=== PATIENT | male | born 2000 | race Hispanic/Latino ===

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

== ENCOUNTER 2022-05-22 23:04 | Emergency (ER) | payer OTHER ==
--- OUTSIDE RECORDS SUMMARY | 2022-05-22 23:07 | XMS REPORT | Continuity of Care Document ---
:2000 Author Organization [facility] t Address [address] [place] [address] Care Team Providers Name Role Phone HORACIO MERIDA Primary Care Physician Unavailable MEHRAN CORONA Attending Clinician Unavailable Mehran Corona DO Attending Clinician MEHRAN CORONA Admitting Clinician Unavailable Payers Payer Name Policy Type Policy Number Effective Date Expiration Date S emma CIGNA II [id number] 2015 00:00:00 Problems This patient has no known problems. Allergies, Adverse Reactions, Alerts Allergy Allergy Status Severity Reaction(s) Onset Inactive Treating Comm ents Source Name Type Date Date Clinician NO KNOWN Drug Active Univers ALLERGIE Class ity of S [facility] Social History Social Habit Start Date Stop Date Quantity Comments Source Exposure to 2022-04-18 2022-04-28 Unable to assess Univers ity of SARS-CoV-2 00:00:00 16:25:00 [facility] (event) Branch Alcohol intake 2022-03-30 2022-03-30 0 /d [facility] 00:00:00 00:00:00 [facility] Sex Assigned At [birth year] Universit y of 00:00:00 00:00:00 [facility] Smoking Status Start Date Stop Date Source Never smoked tobacco [facility] Medications Ordered Filled Start Stop Current Ordering Indication Dosage Frequency Signature Comments Components Source Medication Medication Date Date Medication? Clinician (SIG) Name Name iopamidol 2021- No [id number] 55mL 55 mL, U nivers (ISOVUE 8-10 08-10 Intravenou ity o f 370-500 mL) 23:30: 23:30 s, ONCE, 1 [place] injection 00 :00 dose, On Medica l 55 mL Wed Branch 04/28/22 at 1830, Routine HYDROcodone 2021- No 1{tbl} 1 tablet, Univers -acetaminop 04-28 Oral, ity of hen (NORCO) 23:09: 23:13 [place] 10-325 mg 00 :00 dose, On Medica l tablet 1 Wed Branch tablet 04/28/22 at 1815, Routine NaCl 0.9% 2021- No 1000mL at 999 Uni vers (NS) bolus 04-28 mL/hr, ity of infusion 21:45: 23:51 1,000 mL, [place] 1,000 mL 00 :00 IV Medical Infusion, Branch ONCE, 1 dose, On Tue04/28/22 at 1645, STAT ondansetron 2021- No 4mg 4 mg, Slow Univers (ZOFRAN 04-28 IV Push, ity of (PF)) 21:45: 22:23 ONCE, 1 [place] injection 4 00 :00 dose, On Medi conner mg Tue Branch 04/28/22 at 1645, Routine naproxen Yes [id number] 550mg Take 1 U nivers sodium 550 8-10 tablet by ity of mg tablet 00:00: [facility] morning Branch and 1 tablet in the evening. Take with meals. methylPREDN Yes [id number] Take by Univers ISolone 4 8-10 mouth ity of mg tablets 00:00: SEE-INSTRU [place] 00 CTIONS. Medical follow Branch package directions methocarbam 2021- Yes [id number] 500mg Take 1 Univers oL 500 mg 04-28 tablet by ity of tablet 00:00: 04:59 mouth in [place] 00 :00 the Medical morning Branch and 1 tablet at noon and 1 tablet in the evening. Do all this for 5 days. DICLOFENAC Yes TAKE 1 Unive rs 75 mg EC 5-22 TABLET BY ity of tablet 00:00: MOUTH [place] 00 TWICE Medical DAILY WITH Branch MEALS dextroamphe 2015-09 Yes Hans s tamine-amph 0-22 ity of etamine 00:00: [place] (ADDERALL) 00 Medical 20 mg Branch tablet Vital Signs Vital Name Observation Time Observation Value Comments Source Systolic blood 2022-04-28 23:30:00 121 mm[Hg] Hans sity of pressure [facility] Diastolic blood 2022-04-28 23:30:00 78 mm[Hg] Univadrian rsity of pressure [facility] Heart rate 2022-04-28 23:30:00 70 /min [facility] Respiratory rate 2022-04-28 23:30:00 11 /min [facility] Oxygen saturation in 2022-04-28 23:30:00 99 /min [facility] Arterial blood by [facility] Pulse oximetry [place] Body temperature 2022-04-28 21:45:00 36.67 [facility] height 2022-04-28 21:33:29 182.9 cm [facility] Body weight 2022-04-28 21:33:29 81.647 kg [facility] BMI 2022-04-28 21:33:29 24.41 kg/m2 [facility] Procedures Procedure Date / Time Performed Performing Clinician Sourc e [place] RESUP NPTERF WND 2022-04-28 23:21:[address] [facility] BODY 2.6-7.5 [address] Medical [place] [address] TRAUMA THORAX W 2022-04-28 22:22:54 Mehran Corona [facility] CONTRAST [facility] Branch CT TRAUMA ABDOMEN 2022-04-28 22:22:54 [facility] PELVIS W [facility] CT TRAUMA HEAD WO 2022-04-28 22:08:00 [facility] CONTRAST [facility] CT TRAUMA CERVICAL 2022-04-28 22:08:00 Singer [facility] SPINE WO CONTRAST [facility] COMP. METABOLIC PANEL 2022-04-28 21:52:00 Mehran Corona [facility] [place] ([id number]) Medical Branch ETHANOL 2022-04-28 21:52:00 Mehran Corona [place] [facility] CBC WITH DIFF 2022-04-28 21:52:00 Mehran Corona [place] [facility] LACTIC ACID WHOLE 2022-04-28 21:52:00 Mehran Corona [facility] Encounters Start End Encounter Admission Attending Care Care Encounter Source Date/Time Date/Time Type Type Clinicians Facility Department ID 2022-04-28 2022-04-28 Emergency X SINGER [facility] ERT [id number] Univers 16:28:00 18:54:00 MEHRAN goldsmith [facility] [place] 2022-04-28 2022-04-28 Emergency Singer [facility] [id number] Univers 16:28:00 18:54:00 Mehran STINSON [id number] i ty [facility] [id number] [facility] [id number] [address] Results Test Description Test Time Test Comments Results Result Comments Source Lactic Acid Whole Blood 2022-04-28 21:56:49 Test Item Value Reference Range Interpretation Comme nts LACTIC ACID (test code = 8161923637) 1.62 mmol/L 0.5-2.2 Lab Interpretation (test code = 27216-5) Normal [facility]
[2022-05-22 23:41] LABS: Urine Blood 1+ (Negative); Urine Glucose Negative (Negative); Urine Protein 2+ (Negative); Urine Specific Gravity >=1.030 (1.005-1.030); Urine pH 5.5 (5.0-7.0)
[2022-05-22 23:42] LABS: Hematocrit 43.2 % (39.6-49.0); Lymphocytes % 32.1 % (15.3-44.8); MCV 83.8 fL (80-100); MPV 8.2 fL (7.6-11.3); RBC Red Blood Cell Count 5.15 M/uL (4.33-5.43)
[2022-05-22] MEDS ORDERED: LORazepam 2 MG/ML VIAL ONE (23:45)
[2022-05-22] MEDS ORDERED: LEVETIRACETAM 500 MG/5 ML VIAL IV ONE (23:46)
[2022-05-22] MEDS ORDERED: NA CHLORIDE 0.9% 1,000 ML ONE (23:47)
[2022-05-22] MEDS ORDERED: NA CHLORIDE 0.9% 100 ML ONE (23:47)
[2022-05-22 23:48] LABS: Protime INR 1.16
[2022-05-23 00:03] LABS: Barbiturates NEGATIVE (NEGATIVE); Benzodiazepines NEGATIVE (NEGATIVE); Cocaine NEGATIVE (NEGATIVE); METHAMPHETAM NEGATIVE (NEGATIVE); Methadone NEGATIVE (NEGATIVE); Opiates NEGATIVE (NEGATIVE); Phencyclidine NEGATIVE (NEGATIVE); THC Cannibis NEGATIVE (NEGATIVE)
[2022-05-23 00:10] LABS: ALT/SGPT 42 U/L (12-78); AST/SGOT 14 U/L (15-37); Albumin 4.1 g/dL (3.4-5.0); Alkaline Phosphatase 69 U/L (45-117); BUN Blood Urea Nitrogen 10 mg/dL (7-18); Bicarbonate 25 mmol/L (21-32); Bilirubin Direct < 0.1 mg/dL (0-0.2); Bilirubin Total 0.3 mg/dL (0.2-1.0); Glomerular Filtration Rate 99 ml/min (=/>90); Glucose Level 111 mg/dL (74-106); Potassium 3.8 mmol/L (3.5-5.1); Protein, Total 7.9 g/dL (6.4-8.2); Sodium Level 140 mmol/L (136-145)
--- NOTE | 2022-05-23 00:38 | ER ---
Nurse's Notes [facility] Name: Devin Kathleen Age: 21 yrs Sex: Male : 2000 Arrival Date: 05/22/2022 Time: 23:05 Bed 3 Private MD: Diagnosis: Epileptic seizures related to external causes, not intractable Presentation: 05/22 23:11 Chief complaint: EMS states: Seizure while eating in the restaurant, fell from chair to ke1 ground with tongue protruded out. Coronavirus screen:. Ebola Screen: No symptoms or risks identified at this time. Initial Sepsis Screen: Does the patient meet any 2 criteria? No. Patient's initial sepsis screen is negative. Does the patient have a suspected source of infection? No. Patient's initial sepsis screen is negative. Risk Assessment: Do you want to hurt yourself or someone else? Patient reports no desire to harm self or others. Onset of symptoms was May 22, 2022 at 22:30. 23:11 Method Of Arrival: EMS ke 23:11 Acuity: MEREDITH 3 ke1 Triage Assessment: 23:18 General: Appears in no apparent distress. Behavior is appropriate for age. Pain: Denies ke1 pain. Historical: - Allergies: 23:17 No Known Allergies; ke1 - PMHx: 23:17 Seizure; ke1 - Immunization history:: Client reports having NOT received the Covid vaccine. - Social history:: Smoking status: Patient denies any tobacco usage or history of. - Family history:: not pertinent. Screenin:17 Abuse screen: Denies threats or abuse. Nutritional screening: No deficits noted. ke1 Tuberculosis screening: No symptoms or risk factors identified. Fall Risk Fall in past 12 months (25 points). Secondary diagnosis (15 points) seizures, IV access (20 points). Ambulatory Aid- None/Bed Rest/Nurse Assist (0 pts). Gait- Normal/Bed Rest/Wheelchair (0 pts) Mental Status- Oriented to own ability (0 pts). Total Dhaliwal Fall Scale indicates High Risk Score (45 or more points). Fall prevention measures have been instituted. Side Rails Up X 2 Placed Close to Nursing Station Frequent Obs/Assessments Occuring As available patient and family educated on Fall Prevention Program and Strategies. Vital Signs: 23:11 BP 127 / 62; Pulse 93; Resp 17; Temp 99.2; Pulse Ox 97% ; Weight 90.72 kg; Height 6 ft. ke1 (182.88 cm); Pain 0/10; 23:42 BP 109 / 59; Pulse 77; Resp 16; Temp 98.5(O); Pulse Ox 98% on R/A; mh5 23:11 Body Mass Index 27.12 (90.72 kg, 182.88 cm) ke1 ED Course: 23:05 Patient arrived in ED. ds4 23:11 Trae Ernandez, MANDO is Primary Nurse. ke1 23:17 Triage completed. ke1 23:18 Arm band placed on right wrist. ke1 23:18 Placed in gown. Bed in low position. Call light in reach. Side rails up X 1. Side rails ke1 up X2. Seizure precautions initiated. 23:19 Trenton Keita MD is Attending Physician. jhonny 23:31 Acetaminophen Sent. mh5 23:31 Basic Metabolic Panel Sent. 5 23:31 CBC with Diff Sent. 5 23:31 ETOH Level Sent. 5 23:31 Maintain EMS IV. Site clean \T\ dry. Gauge \T\ site: 18G LAC. ke 1 23:31 Hepatic Function Sent. 5 23:31 PT-INR Sent. 5 23:31 Ptt, Activated Sent. 5 23:31 Salicylate Sent. 5 23:31 Urine Drug Screen Sent. 5 23:31 Initial lab(s) drawn, by tn, sent to lab. Urine collected: clean catch specimen, clear, 5 EKG done, by ED staff, reviewed by Trenton Keita MD. 23:32 Warm blanket given. Pillow given. solution professional on. Pulse ox on. NIBP on. 5 05/23 00:36 CT Head Brain wo Cont In Process Unspecified. EDMS 00:37 Igor Sprague MD is Referral Physician. jhonny 01:37 No provider procedures requiring assistance completed. ke1 01:45 IV discontinued. ke1 Administered Medications: 05/22 23:46 Drug: NS 0.9% 1000 ml Route: IV; Rate: 1 bolus; Site: left antecubital; ke1 05/23 00:30 Follow up: IV Status: Completed infusion ke1 05/22 23:46 Drug: Keppra (levETIRAcetam) 1000 mg Route: IV; Rate: per protocol; Site: left ke antecubital; 05/23 00:01 Follow up: IV Status: Completed infusion ke1 05/22 23:46 Drug: Ativan (LORazepam) 1 mg Route: IVP; Site: left antecubital; ke1 05/23 00:00 Follow up: Response: No adverse reaction ke1 Medication: 01:45 VIS not applicable for this client. ke1 Outcome: 00:38 Discharge ordered by MD. barry 01:45 Discharged to home ambulatory. ke1 01:45 Condition: good 01:45 Discharge instructions given to patient. 01:47 Patient left the ED. ke1 Signatures: Dispatcher [employer] EDMS Trenton Keita MD MD cha Swanson, Donovan 4 Kaela Collier 5 Trae Ernandez, RN RN ke1
--- NOTE | 2022-05-23 00:39 | EDPHYS ---
Physician Documentation [facility] Name: Devin Kathleen Age: 21 yrs Sex: Male : 2000 Arrival Date: 05/22/2022 Time: 23:05 Bed 3 Private MD: ED Physician Trenton Keita HPI: 05/23 00:31 This 21 yrs old Male presents to ER via EMS with complaints of seizure at a [facility] restaurant. 00:31 The patient presents after having a single isolated seizure, that lasted 2 minute(s). [facility] Character of seizure(s): Loss of consciousness: the patient experienced loss of consciousness, Motor activity: generalized, Incontinence: none, Apnea: the patient did not experience apnea, Circulation: the patient did not experience evidence of pulse disturbance. Seizure onset: just prior to arrival. Context: the seizure(s) was witnessed, by a bystander, by family, occurred at a restaurant, occurred while the patient was eating, Contributing factors: unknown. Seizure Hx: Usual frequency: irregular frequency. Associated injury: The patient did not suffer any apparent associated injury. EMS care: none. Current symptoms: Currently, the patient is not experiencing any symptoms. The patient has experienced similar episodes in the past, several times. Historical: - Allergies: 05/22 23:17 No Known Allergies; ke1 - PMHx: 23:17 Seizure; ke1 - Immunization history:: Client reports having NOT received the Covid vaccine. - Social history:: Smoking status: Patient denies any tobacco usage or history of. - Family history:: not pertinent. ROS: 05/23 00:31 Constitutional: Negative for fever, chills, and weight loss, Eyes: Negative for injury, jhonny pain, redness, and discharge, ENT: Negative for injury, pain, and discharge, Neck: Negative for injury, pain, and swelling, Cardiovascular: Negative for chest pain, palpitations, and edema, Respiratory: Negative for shortness of breath, cough, wheezing, and pleuritic chest pain, Abdomen/GI: Negative for abdominal pain, nausea, vomiting, diarrhea, and constipation, Back: Negative for injury and pain, : Negative for injury, bleeding, discharge, and swelling, MS/Extremity: Negative for injury and deformity, Skin: Negative for injury, rash, and discoloration, Psych: Negative for depression, anxiety, suicide ideation, homicidal ideation, and hallucinations, Allergy/Immunology: Negative for hives, rash, and allergies, Endocrine: Negative for neck swelling, polydipsia, polyuria, polyphagia, and marked weight changes, Hematologic/Lymphatic: Negative for swollen nodes, abnormal bleeding, and unusual bruising. Neuro: Positive for headache, seizure activity, weakness. Exam: 00:31 Constitutional: This is a well developed, well nourished patient who is awake, alert, jhonny and in no acute distress. Head/Face: Normocephalic, atraumatic. Eyes: Pupils equal round and reactive to light, extra-ocular motions intact. Lids and lashes normal. Conjunctiva and sclera are non-icteric and not injected. Cornea within normal limits. Periorbital areas with no swelling, redness, or edema. ENT: Nares patent. No nasal discharge, no septal abnormalities noted. Tympanic membranes are normal and external auditory canals are clear. Oropharynx with no redness, swelling, or masses, exudates, or evidence of obstruction, uvula midline. Mucous membranes moist. Neck: Trachea midline, no thyromegaly or masses palpated, and no cervical lymphadenopathy. Supple, full range of motion without nuchal rigidity, or vertebral point tenderness. No Meningismus. Cardiovascular: Regular rate and rhythm with a normal S1 and S2. No gallops, murmurs, or rubs. Normal PMI, no JVD. No pulse deficits. Respiratory: Lungs have equal breath sounds bilaterally, clear to auscultation and percussion. No rales, rhonchi or wheezes noted. No increased work of breathing, no retractions or nasal flaring. Abdomen/GI: Soft, non-tender, with normal bowel sounds. No distension or tympany. No guarding or rebound. No evidence of tenderness throughout. Back: No spinal tenderness. No costovertebral tenderness. Full range of motion. Male : Normal genitalia with no discharge or lesions. Skin: Warm, dry with normal turgor. Normal color with no rashes, no lesions, and no evidence of cellulitis. 00:31 Chest/axilla: Inspection: normal, no acute changes, Palpation: tenderness, that is mild, of the left clavicle, anterior aspect of left upper chest, right lateral anterior chest and right lateral posterior chest. 00:31 ECG was reviewed by the Attending Physician. Vital Signs: 05/22 23:11 BP 127 / 62; Pulse 93; Resp 17; Temp 99.2; Pulse Ox 97% ; Weight 90.72 kg; Height 6 ft. ke1 (182.88 cm); Pain 0/10; 23:42 BP 109 / 59; Pulse 77; Resp 16; Temp 98.5(O); Pulse Ox 98% on R/A; mh5 23:11 Body Mass Index 27.12 (90.72 kg, 182.88 cm) ke1 MDM: 23:19 Patient medically screened. [facility] 05/23 00:35 Differential diagnosis: drug overdose, cardiac arrhythmia, seizure. Data reviewed: [facility] vital signs, nurses notes, lab test result(s), EKG, radiologic studies, CT scan. Data interpreted: cafeteria monitor: rate is 77 beats/min, rhythm is regular, Pulse oximetry: on room air is 77 %. Test interpretation: by ED physician or midlevel provider: ECG. Counseling: I had a detailed discussion with the patient and/or guardian regarding: the historical points, exam findings, and any diagnostic results supporting the discharge/admit diagnosis, lab results, radiology results, the need for outpatient follow up, for definitive care, a family practitioner, a neurologist. 05/22 23:26 Order name: Acetaminophen; Complete Time: 00:29 [facility] 05/22 23:26 Order name: Basic Metabolic Panel; Complete Time: 00:29 [facility] 05/22 23:26 Order name: CBC with Diff; Complete Time: 00:29 [facility] 05/22 23:26 Order name: ETOH Level; Complete Time: 00:29 [facility] 05/22 23:26 Order name: Hepatic Function; Complete Time: 00:29 [facility] 05/22 23:26 Order name: PT-INR; Complete Time: 00:29 [facility] 05/22 23:26 Order name: Ptt, Activated; Complete Time: 00:29 [facility] 05/22 23:26 Order name: Salicylate; Complete Time: 00:29 [facility] 05/22 23:26 Order name: Urine Drug Screen; Complete Time: 00:29 [facility] 05/22 23:26 Order name: CT Head Brain wo Cont [facility] 05/22 23:42 Order name: Urine Dipstick-Ancillary; Complete Time: 00:29 EDMS 05/22 23:26 Order name: EKG; Complete Time: 23:27 [facility] 05/22 23:26 Order name: EKG - Nurse/Tech; Complete Time: : [facility] 05/22 23:26 Order name: IV Saline Lock; Complete Time: [facility] 05/22 23: Order name: Labs collected and sent; Complete Time: [facility] 05/22 23:26 Order name: Suicide Screening ([place]); Complete Time: [facility] 05/22 23:26 Order name: Urine Dipstick-Ancillary (obtain specimen); Complete Time: [facility] 05/22 23:26 Order name: Seizure Precautions; Complete Time: : [facility] EC:31 Rate is 90 beats/min. Rhythm is regular. QRS [place] is Normal. [place] interval is normal. QRS jhonny interval is normal. QT interval is normal. No Q waves. T waves are Normal. No ST changes noted. Clinical impression: Normal ECG, NSR w/ Non-specific ST/T Changes, and No evidence of ischemia. Interpreted by me. Reviewed by me. Administered Medications: 05/22 23:46 Drug: NS 0.9% 1000 ml Route: IV; Rate: 1 bolus; Site: left antecubital; [facility] 05/23 00:30 Follow up: IV Status: Completed infusion [facility] 05/22 23:46 Drug: Keppra (levETIRAcetam) 1000 mg Route: IV; Rate: per protocol; Site: left [facility] antecubital; 05/23 00:01 Follow up: IV Status: Completed infusion [facility] 05/22 23:46 Drug: Ativan (LORazepam) 1 mg Route: IVP; Site: left antecubital; [facility] 05/23 00:00 Follow up: Response: No adverse reaction [facility] Disposition Summary: 05/23/22 00:38 Discharge Ordered Location: Home jhonny Problem: new jhonny Symptoms: have improved jhonny Condition: Stable jhonny Diagnosis - Epileptic seizures related to external causes, not intractable jhonny Followup: jhonny - With: Private Physician - When: 2 - 3 days - Reason: Recheck today's complaints, Continuance of care, Re-evaluation by your physician Followup: jhonny - With: Igor Sprague MD - When: 2 - 3 days - Reason: Recheck today's complaints, Re-evaluation by your physician Discharge Instructions: - Discharge Summary Sheet jhonny - Seizure, Adult jhonny - Seizure, Adult, [id number] [facility] Forms: - Medication Reconciliation Form jhonny - Thank You Letter jhonny - Antibiotic Education jhonny - Prescription Opioid Use jhonny Prescriptions: - Keppra 750 mg Oral Tablet - take 1 tablet by ORAL route every 12 hours; 60 tablet; Refills: 0, Product jhonny Selection Permitted Signatures: Dispatcher [employer] Trenton Maddox MD MD cha Ebrottie, Kouassi RN RN ke1
[2022-05-23 03:10] VITALS: BP 109/59; TEMP 98.5; O2SAT 98
--- NOTE | 2022-05-24 12:28 | RAD REPORT ---
EXAM DESCRIPTION: CT - Head Brain Wo Cont - 05/23/2022 6:34 am CLINICAL HISTORY: 21 years Male Seizure disorder, clinical change TECHNIQUE: Contiguous axial CT images obtained through the brain without IV contrast. Coronal and sa gittal reformats also provided. This CT exam was performed according to our departmental dose-optimization program, which includes on e or more of the following dose reduction techniques: automated exposure control, adjustment of the m A and/or kV according to patient size, and/or use of iterative reconstruction technique. COMPARISON: No prior exams provided for comparison. FINDINGS: There is no intracranial hemorrhage, extra-axial collection, or acute transcortical infarc tion. The ventricles are normal in size and contour without mass-effect or midline shift. Osseous structures are normal. The paranasal sinuses and mastoid air cells are clear. IMPRESSION: No acute intracranial abnormalities. Electronically signed by: Katie Madera MD 05/23/2022 12:43 AM CDT Due to temporary technical issues with the PACS/Fluency reporting system, reports are being signed by the in house radiologists without review as a courtesy to insure prompt reporting. The interpreting radiologist is fully responsible for the content of the report.
--- NOTE | 2022-05-25 14:37 | EKG ---
Test Date: 2022-05-22 Test Time: 23:23:22 Beamer Operator: KATTY MEASUREMENT RESULTS: Intervals: Rate: 90 NE: 160 QRSD: 92 QT: 354 QTc: 433 [place]der: P: 52 NE: 160 QRS: 42 T: 43 INTERPRETIVE STATEMENTS: Normal sinus rhythm Normal ECG Compared to ECG 12/18/2020 22:42:50 Sinus bradycardia no longer present Electronically Signed On 05-25-22 14:32:30 CDT by Roderick Orantes
== END 2022-05-23 01:47 | disposition home or self-care (01) ==
LOC: ER 23:04
DX: G40.509 Epileptic seizures related to external causes, not intractable, without status epilepticus (principal)
CPT/HCPCS: 96361; 93005; 85025; 80048; 36415; 80320; 80329 ×2; 85610; 80076; 85730; 81003; 80307; 70450; 96375; 96374; 99284; J1953; J7030